=== PATIENT | male | born 2000 | race Caucasian/White ===

== ENCOUNTER 2018-10-03 23:18 | Emergency (ER) | payer OTHER | END 2018-10-03 23:29 | disposition left against medical advice (07) | LOC: ED 23:18 | DX: Z53.21 Procedure and treatment not carried out due to patient leaving prior to being seen by health care provider (principal) ==

== ENCOUNTER 2018-11-29 03:45 | Emergency (ER) | payer OTHER ==
[~2018-11-29] VITALS: Ht 182.9 cm; Wt 98.5 kg
[2018-11-29 04:53] VITALS: BP 115/78
== END 2018-11-29 04:53 | disposition home or self-care (01) ==
LOC: ED 03:45
DX: L50.9 Urticaria, unspecified (principal)
CPT/HCPCS: J7512; Q0163